=== PATIENT | female | born 1995 ===

== ENCOUNTER → 2020-10-08 | Outpatient (CLI) | payer SELFPAY | LOC: M LABCAHC 18:05 | PROVIDERS: ATTEND Pediatrics | DX: Z11.59 Encounter for screening for other viral diseases (principal) ==

== ENCOUNTER → 2020-12-10 | Outpatient (REF) | payer OTHER | LOC: M LAB REF 15:35 | PROVIDERS: ATTEND Physician Assistant | DX: J02.9 Acute pharyngitis, unspecified (principal) ==

== ENCOUNTER → 2020-12-16 | Outpatient (CLI) | payer SELFPAY | LOC: M LABSMTC 12:49 | PROVIDERS: ATTEND Pediatrics | DX: Z20.822 Contact with and (suspected) exposure to COVID-19 (principal) ==